=== PATIENT | male | born 1980 | race African-American/Black ===

== ENCOUNTER → 2016-10-05 | Outpatient (CLI) | payer MEDICAID ==
--- NOTE | 2016-10-06 14:22 | CR ---
EXAM DATE: 10/05/16 PATIENT'S AGE: 35 Patient: SAULO GRACE Facility: [place], [place] Site . Site : 1980 Study: XRay Extremity Left Ankle [id number]/26/2017 8:16:46 AM Ordering Physician: Gera Zendejas Final Report: INDICATION: PAIN TECHNIQUE: 3 views of the left ankle COMPARISON: December 05, 2014. FINDINGS: Bones: No fractures or bone lesions. Joint spaces: Unremarkable. Soft tissues: Unremarkable. IMPRESSION: No acute abnormality. Dictated by Suleman Walton MD @ 10/05/2016 11:45:32 PM Dictated by: Suleman Walton MD @ 10/05/2016 23:45:39 (Electronic Signature) Report Signed by Proxy. [facility]
== END ==
LOC: MW.CHORTHO 07:45
PROVIDERS: ATTEND Orthopaedic Surgery
DX: M25.572 Pain in left ankle and joints of left foot (principal)
CPT/HCPCS: 36415; 73610-26-LT; 73610-LT; 85025; 85652; 86038; 86140; 86200; 86430

== ENCOUNTER → 2016-10-07 | Outpatient (CLI) | payer MEDICAID ==
--- NOTE | 2016-10-09 16:41 | MR ---
EXAM DATE: 10/07/16 PATIENT'S AGE: 35 Patient: SAULO GRACE Facility: [place], [place] Site . Site : 1980 Study: MRI Extremity Left [id number]/28/2017 12:10:41 PM Ordering Physician: Gera Zendejas Final Report: HISTORY: Ankle pain. Findings: Ligaments: The anterior and posterior talofibular as well as the calcaneofibular and deltoid ligaments are intact. The syndesmotic ligaments are intact. Tendons: The posterior tibial, flexor digitorum longus, flexor hallucis longus, Achilles, peroneal, tibialis anterior and extensor tendons are intact. Ankle joint: Mild diffuse articular cartilage thinning is noted with subchondral cystic changes in the region of the medial malleolus. No joint effusion or loose body is noted. Bones soft tissues: No findings for transcortical fracture or osteochondritis dissecans. The plantar fascia is unremarkable. Impression: Mild articular cartilage loss and early degenerative change of the ankle joint. Examination is otherwise negative. Dictated by Doug Hermosillo MD @ Oct 08 2016 5:04PM (Electronic Signature) Report Signed by Proxy. [facility]
== END | disposition home or self-care (01) ==
LOC: MW.MRI 11:04
PROVIDERS: ATTEND Orthopaedic Surgery
DX: M25.572 Pain in left ankle and joints of left foot (principal); M13.872 Other specified arthritis, left ankle and foot; R42 Dizziness and giddiness; R11.2 Nausea with vomiting, unspecified; H93.13 Tinnitus, bilateral; H53.8 Other visual disturbances; M54.2 Cervicalgia
CPT/HCPCS: 36415; 72040; 72040-26; 73721-26-LT; 73721-LT; 80053

== ENCOUNTER → 2016-10-11 | Outpatient (CLI) | payer MEDICAID | LOC: MW.MRI 09:12 | PROVIDERS: ATTEND Student in an Organized Health Care Education/Training Program | DX: R42 Dizziness and giddiness (principal); H93.13 Tinnitus, bilateral; H53.8 Other visual disturbances; Z53.9 Procedure and treatment not carried out, unspecified reason ==

== ENCOUNTER → 2016-10-18 | Outpatient (CLI) | payer MEDICAID ==
--- NOTE | 2016-10-20 17:13 | MR ---
EXAMINATION: MRI of the brain with and without contrast. TECHNIQUE: Multiplanar and multisequence imaging of the brain without and following 17 cc of Multih ance contrast. Bkor-cu-zfawum images also obtained with thick slab MIP reconstructions. Moderate mot ion artifact obscures fine detail. HISTORY: Dizziness. FINDINGS: Cerebral hemispheres and the deep nuclei are without hemorrhage, mass, edema, gliosis, enhancement o r atrophy. There is no abnormal diffusion restriction. No extraaxial collections or hemorrhage. Ti ny periventricular and subcortical white matter FLAIR signal intensities are noted. Ventricular system is of normal size and configuration without hydrocephalus. The brainstem and cer ebellum are without hemorrhage, mass, edema, gliosis, enhancement or atrophy. The carotid basilar a rtery flow voids are intact. The distal internal carotid arteries appear normal. The vertebral basil ar system appears normal. The middle, anterior, posterior cerebral arteries appear normal. No defini te aneurysm or stricture. The otomastoid airspaces are clear. No internal auditory canal or cerebellopontine angle masses or enhancement. The paranasal sinuses are clear. Globes, optic nerves, orbital apices, optic chiasm, optic tracts, and visual cortices are unremarka ble. The pituitary and sella turcica are unremarkable. No meningeal enhancement. The craniocervical junction is unremarkable. No siderosis or evidence of vascular malformation. The calvarium is intact. IMPRESSION: 1. No acute intracranial findings. The study is somewhat limited secondary to motion. 2. Small nonspecific periventricular and subcortical white matter FLAIR signal abnormalities.
== END ==
LOC: MW.MRI 08:22
PROVIDERS: ATTEND Student in an Organized Health Care Education/Training Program
DX: R42 Dizziness and giddiness (principal); H93.13 Tinnitus, bilateral
CPT/HCPCS: 70553; 70553-26

== ENCOUNTER → 2016-10-27 | Outpatient (CLI) | payer MEDICAID | LOC: MW.CHNEURO 16:09 | PROVIDERS: ATTEND Psychiatry & Neurology Neuromuscular Medicine | DX: H53.8 Other visual disturbances (principal); R51 Headache; R68.89 Other general symptoms and signs; R20.9 Unspecified disturbances of skin sensation | CPT/HCPCS: 36415; 82607; 84443; 85652 ==

== ENCOUNTER 2017-04-03 10:00 | Emergency (ER) | payer BC ==
--- NOTE | 2017-04-03 10:14 | EDM.PDOC ---
ED HPI GENERAL MEDICAL PROBLEM - General Chief Complaint: General Stated Complaint: WEAKNESS Time Seen by Provider: 04/03/17 10:04 Source of Information: Reports: Patient History Limitations: Reports: No Limitations - History of Present Illness INITIAL COMMENTS - FREE TEXT/NARRATIVE: History of present illness: []Patient has a multitude of complaints including generalized weakness, joint pains, "something moving his head", insomnia, gastritis, lack of appetite, chills, and measured fevers, scratching in his eyes and is requesting meds to make this better. Patient has been seen by several physicians for similar complaints and several workups have been done without a diagnosis given. Patient has no new symptoms today. He does state that he has gastritis but has been off his medications. He has been taking ibuprofen for his joint pains. This is likely making his gastritis worse causing some of his symptoms. Review of systems: As per history of present illness and below otherwise all systems reviewed and negative. Past medical history: As per history of present illness and as reviewed below otherwise noncontributory. Surgical history: As per history of present illness and as reviewed below otherwise noncontributory. Social history: No reported history of drug or alcohol abuse. Family history: As per history of present illness and as reviewed below otherwise noncontributory. Physical exam: General: Well developed, well nourished in NAD HEENT: Atraumatic, normocephalic, pupils reactive, negative for conjunctival pallor or scleral icterus, mucous membranes moist, throat clear, neck supple, nontender, trachea midline. Lungs: Clear to auscultation, breath sounds equal bilaterally, chest nontender. Heart: S1S2, regular, negative for clicks, rubs, or JVD. Abdomen: Soft, nondistended, nontender. Negative for masses or hepatosplenomegaly. Negative for costovertebral tenderness. Pelvis: Stable nontender. Genitourinary: Deferred. Rectal: Deferred. Extremities: Atraumatic, negative for cords or calf pain. Neurovascular unremarkable. Neuro: Awake, alert, oriented. Cranial nerves II through XII unremarkable. Cerebellum unremarkable. Motor and sensory unremarkable throughout. Exam nonfocal. Diagnostics: []CBC and chemistry were checked for screening and were negative Therapeutics: [] Impression: []Gastritis, generalized weakness, generalized joint pains Plan: []Nexium twice a day , Definitive disposition and diagnosis as appropriate pending reevaluation and review of above. Generalized Pain Score (Numeric/FACES): 5 - Related Data Allergies Allergy/AdvReac Type Severity Reaction Status Date / Time No Known Allergies Allergy Verified 04/03/17 10:12 Home Meds: Home Meds Calcium Carbonate/Vitamin D3 [Calcium 500 + Vit D Caplet] 1 each PO DAILY [History] Esomeprazole Magnesium [Nexium] 40 mg PO BID #30 capsule. 04/03/17 [Rx] Past Medical History - Past Health History Medical/Surgical History: Denies Medical/Surgical History HEENT History: Reports: None Cardiovascular History: Reports: None Respiratory History: Reports: None Gastrointestinal History: Reports: None Genitourinary History: Reports: None Musculoskeletal History: Reports: None Neurological History: Reports: None Endocrine/Metabolic History: Reports: None Dermatologic History: Reports: None - Infectious Disease History Infectious Disease History: Reports: None - Past Surgical History HEENT Surgical History: Reports: None Cardiovascular Surgical History: Reports: None GI Surgical History: Reports: None Male Surgical History: Reports: None Social & Family History - Family History HEENT: Reports: None Cardiac: Reports: None - Tobacco Use Smoking Status *Q: Never Smoker - Alcohol Use Days Per Week of Alcohol Use: 0 Number of Drinks Per Day: 15 Total Drinks Per Week: 0 - Recreational Drug Use Recreational Drug Use: No ED ROS GENERAL - Review of Systems Review Of Systems: See Below (See history of present illness) ED EXAM, GENERAL - Physical Exam Exam: See Below (See history of present illness) Course - Vital Signs Last Recorded V/S: Last Vital Signs Temp 36.7 C 04/03/17 11:00 Pulse 97 04/03/17 11:00 Resp 14 04/03/17 11:00 BP 127/89 04/03/17 11:00 Pulse Ox 98 04/03/17 11:00 - Orders/Labs/Meds Labs: Laboratory Tests 04/03/17 04/03/17 Range/Units 10:51 10:51 WBC 6.12 (4.0-11.0) K/uL RBC 5.54 (4.50-5.90) M/uL Hgb 16.3 (13.0-17.0) g/dL Hct 46.7 (38.0-50.0) % MCV 84.3 (80.0-98.0) fL MCH 29.4 (27.0-32.0) pg MCHC 34.9 (31.0-37.0) g/dL RDW Std Deviation 40.9 (28.0-62.0) fl RDW Coeff of Nancy 13 (11.0-15.0) % Plt Count 178 (150-400) K/uL MPV 11.10 (7.40-12.00) fL Neut % (Auto) 65.2 (48.0-80.0) % Lymph % (Auto) 27.3 (16.0-40.0) % [place] % (Auto) 6.2 (0.0-15.0) % Eos % (Auto) 1.0 (0.0-7.0) % Baso % (Auto) 0.3 (0.0-1.5) % Neut # (Auto) 4.0 (1.4-5.7) K/uL Lymph # (Auto) 1.7 (0.6-2.4) K/uL [place] # (Auto) 0.4 (0.0-0.8) K/uL Eos # (Auto) 0.1 (0.0-0.7) K/uL Baso # (Auto) 0.0 (0.0-0.1) K/uL Nucleated RBC % 0.0 /100WBC Nucleated RBCs # 0 K/uL Sodium 139 (136-146) mmol/L Potassium 4.3 (3.5-5.1) mmol/L Chloride 107 (98-110) mmol/L Carbon Dioxide 26 (21-31) mmol/L BUN 8 (6.0-23.0) mg/dL Creatinine 1.3 (0.6-1.5) mg/dL Est Cr Clr Drug Dosing 86.22 mL/min Estimated GFR (MDRD) > 60.0 ml/min Glucose 88 (60-110) mg/dL Calcium 9.7 (8.8-10.8) mg/dL Total Bilirubin 0.7 (0.1-1.5) mg/dL AST 27 (5-40) IU/L ALT 29 (8-54) IU/L Alkaline Phosphatase 65 (40-150) Total Protein 7.8 (6.0-8.0) g/dL Albumin 4.3 (3.5-5.0) g/dL Globulin 3.5 (2.0-3.5) g/dL Albumin/Globulin Ratio 1.2 L (1.3-2.8) Departure - Departure Time of Disposition: 10:36 Disposition: Home, Self-Care 01 Condition: Good Clinical Impression: Gastritis Qualifiers: Gastritis type: unspecified gastritis Chronicity: chronic Gastritis bleeding: without bleeding Qualified Code(s): K29.50 - Unspecified chronic gastritis without bleeding - Discharge Information Prescriptions: Esomeprazole Magnesium [Nexium] 40 mg PO BID #30 capsule. Referrals: Solange Whiteside, [employer] [Primary Care Provider] - Forms: ED Department Discharge Additional Instructions: The following information is given to patients seen in the emergency department who are being discharged to home. This information is to outline your options for follow-up care. We provide all patients seen in our emergency department with a follow-up referral. The need for follow-up, as well as the timing and circumstances, are variable depending upon the specifics of your emergency department visit. If you don't have a primary care physician on staff, we will provide you with a referral. We always advise you to contact your personal physician following an emergency department visit to inform them of the circumstance of the visit and for follow-up with them and/or the need for any referrals to a consulting specialist. The emergency department will also refer you to a specialist when appropriate. This referral assures that you have the opportunity for follow-up care with a specialist. All of these measure are taken in an effort to provide you with optimal care, which includes your follow-up. Under all circumstances we always encourage you to contact your private physician who remains a resource for coordinating your care. When calling for follow-up care, please make the office aware that this follow-up is from your recent emergency room visit. If for any reason you are refused follow-up, please contact the [facility] Emergency Department at and asked to speak to the emergency department charge nurseCarmen Mendez as directed follow-up with your primary care physician [facility] [address] [place] [id number]
[2017-04-03 11:26] LABS: CHLORIDE,CL 107 mmol/L (98-110); SODIUM,NA 139 mmol/L (136-146)
[2017-04-03 12:06] VITALS: BP 121/76
== END 2017-04-03 12:00 | disposition home or self-care (01) ==
LOC: MW.ED 10:00
DX: K29.50 Unspecified chronic gastritis without bleeding (principal); R53.1 Weakness; M25.50 Pain in unspecified joint
CPT/HCPCS: 36415; 80053; 85025; 99283; 99285

== ENCOUNTER 2017-05-14 03:57 | Emergency (ER) | payer BC ==
[2017-05-14] MEDS ORDERED: Alum Hydrox/Mag Hydrox/Simeth 15 ML, Metoclopramide 5 MG, Lidocaine 2% 5 ML PO ONE ×3 (04:08)
[2017-05-14] MEDS ORDERED: Pantoprazole 40 MG Vial IVPUSH ONE (04:08)
[2017-05-14] MEDS ORDERED: Sodium Chloride 0.9% 1,000 ML IV ONE (04:08)
--- NOTE | 2017-05-14 04:10 | EDM.PDOC ---
ED HPI GENERAL MEDICAL PROBLEM - General Chief Complaint: Abdominal Pain Stated Complaint: STOMACH PAIN Time Seen by Provider: 05/14/17 04:09 Source of Information: Reports: Patient - History of Present Illness INITIAL COMMENTS - FREE TEXT/NARRATIVE: HISTORY AND PHYSICAL: History of present illness: []Patient with history of gastritis presents with abdominal/epigastric discomfort 4 out of 10 nonradiating worsening over the last day no fever nausea vomiting chills sweats no chest pain shortness breath headache dizziness palpitation about a urine symptoms Patient has had endoscopy one year prior Review of systems: As per history of present illness and below otherwise all systems reviewed and negative. Past medical history: As per history of present illness and as reviewed below otherwise noncontributory. Surgical history: As per history of present illness and as reviewed below otherwise noncontributory. Social history: No reported history of drug or alcohol abuse. Family history: As per history of present illness and as reviewed below otherwise noncontributory. Physical exam: HEENT: Atraumatic, normocephalic, pupils reactive, negative for conjunctival pallor or scleral icterus, mucous membranes moist, throat clear, neck supple, nontender, trachea midline. Lungs: Clear to auscultation, breath sounds equal bilaterally, chest nontender. Heart: S1S2, regular, negative for clicks, rubs, or JVD. Abdomen: Soft, nondistended, nontender. Negative for masses or hepatosplenomegaly. Negative for costovertebral tenderness. Pelvis: Stable nontender. Genitourinary: Deferred. Rectal: Deferred. Extremities: Atraumatic, negative for cords or calf pain. Neurovascular unremarkable. Neuro: Awake, alert, oriented. Cranial nerves II through XII unremarkable. Cerebellum unremarkable. Motor and sensory unremarkable throughout. Exam nonfocal. Diagnostics: []CBC CMP amylase lipase troponin Therapeutics: []1 L normal saline bolus GI cocktail Protonix 80 mg IV Symptoms resolved with above treatment Impression: []Gastritis improved Definitive disposition and diagnosis as appropriate pending reevaluation and review of above. Middle Abdomen Pain Score (Numeric/FACES): 5 - Related Data Allergies Allergy/AdvReac Type Severity Reaction Status Date / Time NSAIDS (Non-Steroidal Allergy Stomach Verified 05/14/17 04:08 Anti-Inflamma Upset Home Meds: Home Meds Calcium Carbonate/Vitamin D3 [Calcium 500 + Vit D Caplet] 1 each PO DAILY [History] Omeprazole 20 mg PO DAILY 05/14/17 [History] Past Medical History - Past Health History Medical/Surgical History: Denies Medical/Surgical History HEENT History: Reports: None Cardiovascular History: Reports: None Respiratory History: Reports: None Gastrointestinal History: Reports: None Genitourinary History: Reports: None Musculoskeletal History: Reports: None Neurological History: Reports: None Psychiatric History: Reports: Anxiety Endocrine/Metabolic History: Reports: None Dermatologic History: Reports: None - Infectious Disease History Infectious Disease History: Reports: None - Past Surgical History HEENT Surgical History: Reports: None Cardiovascular Surgical History: Reports: None GI Surgical History: Reports: None Male Surgical History: Reports: None Social & Family History - Family History HEENT: Reports: None Cardiac: Reports: None - Tobacco Use Smoking Status *Q: Never Smoker Second Hand Smoke Exposure: No - Caffeine Use Caffeine Use: Reports: None - Alcohol Use Days Per Week of Alcohol Use: 0 Number of Drinks Per Day: 15 Total Drinks Per Week: 0 - Recreational Drug Use Recreational Drug Use: No ED ROS GENERAL - Review of Systems Review Of Systems: ROS reveals no pertinent complaints other than HPI. ED EXAM, GENERAL - Physical Exam Exam: See Below Course - Vital Signs Last Recorded V/S: Last Vital Signs Temp 97.8 F 05/14/17 04:05 Pulse 69 05/14/17 05:23 Resp 17 05/14/17 05:23 BP 130/77 05/14/17 05:23 Pulse Ox 99 05/14/17 05:23 - Orders/Labs/Meds Orders: Active Orders 24 hr Category Date Time Status Abdomen 2V AP Flat Upright [CR] Stat Exams 05/14/17 05:20 Taken Labs: Laboratory Tests 05/14/17 05/14/17 Range/Units 04:30 04:30 WBC 7.42 (4.0-11.0) K/uL RBC 5.54 (4.50-5.90) M/uL Hgb 16.9 (13.0-17.0) g/dL Hct 47.9 (38.0-50.0) % MCV 86.5 (80.0-98.0) fL MCH 30.5 (27.0-32.0) pg MCHC 35.3 (31.0-37.0) g/dL RDW Std Deviation 43.3 (28.0-62.0) fl RDW Coeff of Nancy 14 (11.0-15.0) % Plt Count 161 (150-400) K/uL MPV 10.80 (7.40-12.00) fL Neut % (Auto) 48.1 (48.0-80.0) % Lymph % (Auto) 42.3 H (16.0-40.0) % [place] % (Auto) 7.1 (0.0-15.0) % Eos % (Auto) 2.2 (0.0-7.0) % Baso % (Auto) 0.3 (0.0-1.5) % Neut # (Auto) 3.6 (1.4-5.7) K/uL Lymph # (Auto) 3.1 H (0.6-2.4) K/uL [place] # (Auto) 0.5 (0.0-0.8) K/uL Eos # (Auto) 0.2 (0.0-0.7) K/uL Baso # (Auto) 0.0 (0.0-0.1) K/uL Nucleated RBC % 0.0 /100WBC Nucleated RBCs # 0 K/uL Sodium 143 (136-146) mmol/L Potassium 3.3 L (3.5-5.1) mmol/L Chloride 107 (98-110) mmol/L Carbon Dioxide 25 (21-31) mmol/L BUN 11 (6.0-23.0) mg/dL Creatinine 1.4 (0.6-1.5) mg/dL Est Cr Clr Drug Dosing 80.06 mL/min Estimated GFR (MDRD) > 60.0 ml/min Glucose 103 (60-110) mg/dL Calcium 9.6 (8.8-10.8) mg/dL Total Bilirubin 0.5 (0.1-1.5) mg/dL AST 31 (5-40) IU/L ALT 34 (8-54) IU/L Alkaline Phosphatase 69 (40-150) Troponin I < 0.10 (0.0-0.29) NG/ML Total Protein 7.9 (6.0-8.0) g/dL Albumin 4.5 (3.5-5.0) g/dL Globulin 3.4 (2.0-3.5) g/dL Albumin/Globulin Ratio 1.3 (1.3-2.8) Amylase 97 H (10-90) U/L Lipase 51 (7-80) U/L Meds: Medications Discontinued Medications Generic Name Dose Route Start Last Admin Trade Name Kavonq PRN Reason Stop Dose Admin Al Hydroxide/Mg Hydroxide 15 0 ml 05/14/17 04:08 05/14/17 04:32 ml/ Metoclopramide HCl 5 mg/ PO 05/14/17 04:09 25 each Lidocaine HCl 5 ml ONETIME ONE Administration Sodium Chloride 1,000 mls @ 999 mls/hr 05/14/17 04:08 05/14/17 04:30 Normal Saline IV 05/14/17 05:08 999 mls/hr STAT ONE Administration Pantoprazole Sodium 80 mg 05/14/17 04:08 05/14/17 04:34 Protonix Iv IVPUSH 05/14/17 04:09 80 mg .BOLUS ONE Administration Departure - Departure Time of Disposition: 06:43 Disposition: Home, Self-Care 01 Condition: Good Clinical Impression: Gastritis Qualifiers: Gastritis type: unspecified gastritis Chronicity: chronic Gastritis bleeding: without bleeding Qualified Code(s): K29.50 - Unspecified chronic gastritis without bleeding - Discharge Information Referrals: Solange Whiteside NP [Primary Care Provider] - Forms: ED Department Discharge Additional Instructions: Continue home medications as directed [place] diet Return if symptoms persist or worsen Follow-up with primary care in 2 weeks sooner as needed The following information is given to patients seen in the emergency department who are being discharged to home. This information is to outline your options for follow-up care. We provide all patients seen in our emergency department with a follow-up referral. The need for follow-up, as well as the timing and circumstances, are variable depending upon the specifics of your emergency department visit. If you don't have a primary care physician on staff, we will provide you with a referral. We always advise you to contact your personal physician following an emergency department visit to inform them of the circumstance of the visit and for follow-up with them and/or the need for any referrals to a consulting specialist. The emergency department will also refer you to a specialist when appropriate. This referral assures that you have the opportunity for follow-up care with a specialist. All of these measure are taken in an effort to provide you with optimal care, which includes your follow-up. Under all circumstances we always encourage you to contact your private physician who remains a resource for coordinating your care. When calling for follow-up care, please make the office aware that this follow-up is from your recent emergency room visit. If for any reason you are refused follow-up, please contact the [facility] emergency department at and asked to speak to the emergency department charge nurse. - My Orders Last 24 Hours: My Active Orders 05/14/17 05:20 Abdomen 2V AP Flat Upright [CR] Stat - Assessment/Plan Last 24 Hours: My Active Orders 05/14/17 05:20 Abdomen 2V AP Flat Upright [CR] Stat
[2017-05-14 04:56] LABS: CHLORIDE,CL 107 mmol/L (98-110); SODIUM,NA 143 mmol/L (136-146)
[2017-05-14 06:54] VITALS: BP 127/82
--- NOTE | 2017-05-15 15:35 | CR ---
EXAM DATE: 05/14/17 PATIENT'S AGE: 36 Patient: SAULO GRACE Facility: [place], [place] Site . Site : 1980 Study: XRay Abdomen [id number]/3/2017 5:55:36 AM Ordering Physician: Cedric Molina Final Report: INDICATION: Abdominal pain. TECHNIQUE: Upright and supine views of the abdomen, total of 4 images. IMPRESSION : The bowel gas pattern is nonobstructive. Upright exam shows no free air under the hemidiaphragms. Mild volume of colonic stool. Bowel gas extends distally to the rectum. No pathologic abdominal calcifications. Dictated by Jake Kendall MD @ 05/14/2017 6:03:46 AM Dictated by: Jake Kendall MD @ 05/14/2017 06:03:51 (Electronic Signature) Report Signed by Proxy. [facility]
== END 2017-05-14 06:57 | disposition home or self-care (01) ==
LOC: MW.ED 03:57
DX: K29.50 Unspecified chronic gastritis without bleeding (principal); Z79.899 Other long term (current) drug therapy
CPT/HCPCS: 74020; 80053; 82150; 83690; 84484; 85025; 96361; 96374; 99284; A9270; C9113; J7040

== ENCOUNTER 2017-05-22 06:03 | Emergency (ER) | payer BC ==
[2017-05-22] MEDS ORDERED: Sodium Chloride 0.9% 10 ML Syringe FLUSH PRN (06:17)
[2017-05-22] MEDS ORDERED: Sodium Chloride 0.9% 2.5 ML Syringe FLUSH PRN (06:17)
[2017-05-22] MEDS ORDERED: Sodium Chloride 0.9% 1,000 ML IV ONE (06:21)
--- NOTE | 2017-05-22 06:21 | EDM.PDOC ---
<Kayy Bridges - Last Filed: 05/22/17 06:40> ED HPI GENERAL MEDICAL PROBLEM - General Chief Complaint: Cardiovascular Problem Stated Complaint: DIZZY Time Seen by Provider: 05/22/17 06:09 - History of Present Illness INITIAL COMMENTS - FREE TEXT/NARRATIVE: HISTORY AND PHYSICAL: History of present illness: The patient is a 36-year-old male who presents with complaints of lightheadedness and feeling like he is going to faint associated with epigastric discomfort with some burning going up to his throat, thirsty like he needs to drink a lot of water and sweating of his feet that started at 12 midnight, 6 hours ago. The patient has been seen in the emergency department on May 14 for epigastric pain with history of gastritis and had labs including a CBC CMP amylase lipase troponin and then followed up with his provider in the clinic on May 18 and had an H. pylori test which was negative. According to the patient he has an ultrasound scheduled for this week. He has no cardiac or pulmonary and has no GI history other than the gastritis. Patient is currently taking medication, omeprazole and sucralfate, for the gastritis and states compliance. The patient denies any black or bloody stools and has not had diarrhea. He says that his restless last night and had difficulty sleeping and he is not sure why and then these symptoms started and he says that he had a bowel movement after the symptoms started which was again not black or bloody He denies alcohol or drug use and he said he did not complete pass out or blacked out but just felt lightheaded. He has no headache or neck pain no back pain no urinary complaints. Patient says he feels better when he lays down. The patient denies that he is dizzy he says it is more lightheadedness. Patient denies caffeine use Review of systems: As per history of present illness and below otherwise all systems reviewed and negative. Past medical history: As per history of present illness and as reviewed below otherwise noncontributory. Surgical history: As per history of present illness and as reviewed below otherwise noncontributory. Social history: No reported history of drug or alcohol abuse. Family history: As per history of present illness and as reviewed below otherwise noncontributory. Physical exam: Gen.: Well-developed well-nourished man who is nontoxic and ambulated into the ED without distress. Vital signs of the note by me. HEENT: Atraumatic, normocephalic, pupils reactive, negative for conjunctival pallor or scleral icterus, mucous membranes moist, throat clear, neck supple, nontender, trachea midline. Lungs: Clear to auscultation, breath sounds equal bilaterally, chest nontender. Heart: S1S2, regular rate and rhythm no overt murmurs Abdomen: Soft, nondistended, nontender. Bowel sounds are normoactive and there is no rebound guarding or tenderness on palpation of the abdomen throughout. Negative for masses or hepatosplenomegaly. Pelvis: Stable nontender. Genitourinary: Deferred. Rectal: Normal tone and there is scant stool in the vault which is green in color but it was trace heme positive Extremities: Atraumatic, negative for cords or calf pain. Neurovascular unremarkable. No pedal edema or leg asymmetry Neuro: Awake, alert, oriented. Cranial nerves II through XII unremarkable. Cerebellum unremarkable. Motor and sensory unremarkable throughout. Exam nonfocal. Skin: Normal turgor no evidence of any overt rashes or lesions and no diaphoresis Diagnostics: EKG orthostatic vitals CBC CMP troponin amylase lipase chest x-ray Therapeutics: IV O2 monitor IV fluids Orthostatic vitals reveal a change in systolic blood pressure from lying to standing from 148-123 and his heart rate goes from 82-101 indicating some orthostasis. Patient's hemoglobin today is stable when compared to the one performed on May 14 The patient does tell me that he is scheduled to have this ultrasound in the next 2 days with his provider Yolis Dorantes and that pending that result she told him the next step would be to get an endoscopy. Case is endorsed to Dr. Rai at 7 AM to follow-up testing results and disposition patient. Impression: Episode of lightheadedness and orthostasis with history of gastritis and heme positive stools stable Definitive disposition and diagnosis as appropriate pending reevaluation and review of above. - Related Data Allergies Allergy/AdvReac Type Severity Reaction Status Date / Time NSAIDS (Non-Steroidal Allergy Stomach Verified 05/22/17 06:12 Anti-Inflamma Upset Home Meds: Home Meds Calcium Carbonate/Vitamin D3 [Calcium 500 + Vit D Caplet] 1 each PO DAILY [History] Omeprazole 20 mg PO DAILY 05/14/17 [History] Sucralfate 1 tab PO QID 05/22/17 [History] Past Medical History - Past Health History Medical/Surgical History: Denies Medical/Surgical History HEENT History: Reports: None Cardiovascular History: Reports: None Respiratory History: Reports: None Gastrointestinal History: Reports: None Genitourinary History: Reports: None Musculoskeletal History: Reports: None Neurological History: Reports: None Psychiatric History: Reports: Anxiety Endocrine/Metabolic History: Reports: None Dermatologic History: Reports: None - Infectious Disease History Infectious Disease History: Reports: None - Past Surgical History HEENT Surgical History: Reports: None Cardiovascular Surgical History: Reports: None GI Surgical History: Reports: None Male Surgical History: Reports: None Social & Family History - Family History HEENT: Reports: None Cardiac: Reports: None - Tobacco Use Smoking Status *Q: Never Smoker Used Tobacco, but Quit: Yes Month Tobacco Last Used: 2013 Second Hand Smoke Exposure: No - Caffeine Use Caffeine Use: Reports: None - Alcohol Use Days Per Week of Alcohol Use: 0 Number of Drinks Per Day: 15 Total Drinks Per Week: 0 - Recreational Drug Use Recreational Drug Use: No ED ROS GENERAL - Review of Systems Review Of Systems: ROS reveals no pertinent complaints other than HPI. ED EXAM, GENERAL - Physical Exam Exam: See Below (See dictation) Course - Vital Signs Last Recorded V/S: Last Vital Signs Temp 98.2 F 05/22/17 06:08 Pulse 85 05/22/17 06:08 Resp 18 05/22/17 06:08 BP 141/87 H 05/22/17 06:08 Pulse Ox 99 05/22/17 06:08 Orthostatic Blood Pressure [ 123/86 Standing] Orthostatic Blood Pressure [ 143/89 Sitting] Orthostatic Blood Pressure [ 148/93 Supine] - Orders/Labs/Meds Orders: Active Orders 24 hr Category Date Time Status Cardiac Monitoring [RC] . DIRECTED Care 05/22/17 06:16 Active EKG Documentation Completion [RC] STAT Care 05/22/17 06:16 Active Orthostatic Vital Signs [RC] ASDIRECTED Care 05/22/17 06:17 Active Pulse Oximetry [RC] ASDIRECTED Care 05/22/17 06:16 Active Chest 1V Frontal [CR] Stat Exams 05/22/17 06:16 Taken Sodium Chloride 0.9% [Saline Flush] Med 05/22/17 06:17 Active 10 ml FLUSH ASDIRECTED PRN Sodium Chloride 0.9% [Saline Flush] Med 05/22/17 06:17 Active 2.5 ml FLUSH ASDIRECTED PRN Saline Lock Insert [OM.PC] Stat Oth 05/22/17 06:15 Ordered Medication Orders Sodium Chloride (Saline Flush) 10 ml FLUSH ASDIRECTED PRN PRN Reason: Keep Vein Open Last Admin: 05/22/17 06:42 Dose: 10 ml Sodium Chloride (Saline Flush) 2.5 ml FLUSH ASDIRECTED PRN PRN Reason: Keep Vein Open Last Admin: 05/22/17 06:41 Dose: 2.5 ml Labs: Laboratory Tests 05/22/17 05/22/17 Range/Units 06:20 06:20 WBC 7.29 (4.0-11.0) K/uL RBC 5.44 (4.50-5.90) M/uL Hgb 16.3 (13.0-17.0) g/dL Hct 46.4 (38.0-50.0) % MCV 85.3 (80.0-98.0) fL MCH 30.0 (27.0-32.0) pg MCHC 35.1 (31.0-37.0) g/dL RDW Std Deviation 41.6 (28.0-62.0) fl RDW Coeff of Nancy 14 (11.0-15.0) % Plt Count 181 (150-400) K/uL MPV 11.20 (7.40-12.00) fL Neut % (Auto) 52.1 (48.0-80.0) % Lymph % (Auto) 37.4 (16.0-40.0) % [place] % (Auto) 8.8 (0.0-15.0) % Eos % (Auto) 1.6 (0.0-7.0) % Baso % (Auto) 0.1 (0.0-1.5) % Neut # (Auto) 3.8 (1.4-5.7) K/uL Lymph # (Auto) 2.7 H (0.6-2.4) K/uL [place] # (Auto) 0.6 (0.0-0.8) K/uL Eos # (Auto) 0.1 (0.0-0.7) K/uL Baso # (Auto) 0.0 (0.0-0.1) K/uL Nucleated RBC % 0.0 /100WBC Nucleated RBCs # 0 K/uL Sodium 139 (136-146) mmol/L Potassium 3.3 L (3.5-5.1) mmol/L Chloride 104 (98-110) mmol/L Carbon Dioxide 22 (21-31) mmol/L BUN 9 (6.0-23.0) mg/dL Creatinine 1.4 (0.6-1.5) mg/dL Est Cr Clr Drug Dosing 80.06 mL/min Estimated GFR (MDRD) > 60.0 ml/min Glucose 118 H (60-110) mg/dL Calcium 9.5 (8.8-10.8) mg/dL Total Bilirubin 0.8 (0.1-1.5) mg/dL AST 26 (5-40) IU/L ALT 27 (8-54) IU/L Alkaline Phosphatase 55 (40-150) Troponin I < 0.10 (0.0-0.29) NG/ML Total Protein 7.8 (6.0-8.0) g/dL Albumin 4.3 (3.5-5.0) g/dL Globulin 3.5 (2.0-3.5) g/dL Albumin/Globulin Ratio 1.2 L (1.3-2.8) Amylase 119 H (10-90) U/L Lipase 68 (7-80) U/L Meds: Medications Generic Name Dose Route Start Last Admin Trade Name Freq PRN Reason Stop Dose Admin Sodium Chloride 10 ml 05/22/17 06:17 05/22/17 06:42 Saline Flush FLUSH 10 ml ASDIRECTED PRN Administration Keep Vein Open Sodium Chloride 2.5 ml 05/22/17 06:17 05/22/17 06:41 Saline Flush FLUSH 2.5 ml ASDIRECTED PRN Administration Keep Vein Open Discontinued Medications Generic Name Dose Route Start Last Admin Trade Name Freq PRN Reason Stop Dose Admin Sodium Chloride 1,000 mls @ 999 mls/hr 05/22/17 06:21 05/22/17 06:41 Normal Saline IV 05/22/17 07:21 999 mls/hr STAT ONE Administration Departure - Departure Disposition: Home, Self-Care 01 Condition: Good Clinical Impression: Lightheadedness, Orthostasis, History of gastritis Referrals: PCP,None [Primary Care Provider] - Forms: ED Department Discharge Additional Instructions: The following information is given to patients seen in the emergency department who are being discharged to home. This information is to outline your options for follow-up care. We provide all patients seen in our emergency department with a follow-up referral. The need for follow-up, as well as the timing and circumstances, are variable depending upon the specifics of your emergency department visit. If you don't have a primary care physician on staff, we will provide you with a referral. We always advise you to contact your personal physician following an emergency department visit to inform them of the circumstance of the visit and for follow-up with them and/or the need for any referrals to a consulting specialist. The emergency department will also refer you to a specialist when appropriate. This referral assures that you have the opportunity for followup care with a specialist. All of these measure are taken in an effort to provide you with optimal care, which includes your followup. Under all circumstances we always encourage you to contact your private physician who remains a resource for coordinating your care. When calling for followup care, please make the office aware that this follow-up is from your recent emergency room visit. If for any reason you are refused follow-up, please contact the [facility] emergency department at and ask to speak to the emergency department charge nurse. Primary care- Internal Medicine and Family [address] [address] Please continue all your medications as before and push hydration. Please contact the clinic to discuss today's ER visit with your provider and still go to your ultrasound as scheduled this week. Please make sure that you have a follow-up appointment with your provider scheduled in the next few days. Return to ER as needed and as discussed <Gladys Rai - Last Filed: 05/22/17 08:15> Departure - Departure Time of Disposition: 08:15
[2017-05-22 06:57] LABS: CHLORIDE,CL 104 mmol/L (98-110); SODIUM,NA 139 mmol/L (136-146)
[2017-05-22 08:32] VITALS: BP 134/89
--- NOTE | 2017-05-22 20:21 | CR ---
EXAM DATE: 05/22/17 PATIENT'S AGE: 36 Patient: SAULO GRACE Facility: [place], [place] Site . Site : [id number] Study: XRay Chest [id number]/11/2017 6:53:34 AM Ordering Physician: Yuliana Sultana Final Report: INDICATION: Dizziness COMPARISON: Chest x-ray dated 06 August 2015. FINDINGS: A single portable chest x-ray shows a normal cardiac silhouette. The lungs show no focal pulmonary opacities. Sharp pleural margins. No pneumothorax. IMPRESSION: No evidence of acute pulmonary abnormalities. Dictated by Hadley Carlson MD @ 05/22/2017 7:26:41 AM Dictated by: Hadley Carlson MD @ 05/22/2017 07:26:53 (Electronic Signature) Report Signed by Proxy. [facility]
== END 2017-05-22 08:32 | disposition home or self-care (01) ==
LOC: MW.ED 06:03
DX: I95.1 Orthostatic hypotension (principal); Z88.8 Allergy status to other drugs, medicaments and biological substances; Z79.899 Other long term (current) drug therapy; Z87.19 Personal history of other diseases of the digestive system
CPT/HCPCS: 71010; 80053; 82150; 83690; 84484; 85025; 93005; 99284; J7040

== ENCOUNTER 2017-06-13 12:06 | Day surgery (SDC) | payer BC ==
[~2017-06-13 12:06] MED LIST: Lactated Ringers 1,000 ML IV SCH
--- NOTE | 2017-06-13 12:33 | PCM.PREANE ---
Preanesthetic Assessment - Anesthesia/Transfusion/Family Hx Anesthesia History: No Prior Anesthesia Family History of Anesthesia Reaction: No Transfusion History: No Prior Transfusion(s) - Review of Systems General: No Symptoms Pulmonary: No Symptoms Cardiovascular: No Symptoms Neurological: No Symptoms Other: Reports: None - Physical Assessment Height: 1.83 m Weight: 83.461 kg ASA Class: 2 Mental Status: Alert & Oriented x3 Airway Class: Mallampati = 1 Dentition: Reports: Normal Dentition ROM/Head Extension: Limited/Partial Lungs: Clear to Auscultation, Normal Respiratory Effort Cardiovascular: Regular Rate, Regular Rhythm - Allergies Allergies/Adverse Reactions: Allergies Allergy/AdvReac Type Severity Reaction Status Date / Time NSAIDS (Non-Steroidal Allergy Stomach Verified 05/22/17 06:12 Anti-Inflamma Upset - Anesthesia Plan Pre-Op Medication Ordered: None - Acknowledgements Anesthesia Type Planned: MAC Pt an Appropriate Candidate for the Planned Anesthesia: Yes Alternatives and Risks of Anesthesia Discussed w Pt/Guardian: Yes Pt/Guardian Understands and Agrees with Anesthesia Plan: Yes Additional Comments: PMH: anxiety, gastritis, GERD, denies hx of heart valve replacement. PreAnesthesia Questionnaire - Past Health History Medical/Surgical History: Denies Medical/Surgical History HEENT History: Reports: Other (See Below) Other HEENT History: hx of dry eyes Cardiovascular History: Reports: None Respiratory History: Reports: None Gastrointestinal History: Reports: GERD Genitourinary History: Reports: None Musculoskeletal History: Reports: Fracture Other Musculoskeletal History: hx of fx ankle Neurological History: Reports: Headaches, Chronic Psychiatric History: Reports: Anxiety Endocrine/Metabolic History: Reports: None Dermatologic History: Reports: None - Infectious Disease History Infectious Disease History: Reports: None - Past Surgical History HEENT Surgical History: Reports: None Cardiovascular Surgical History: Reports: None GI Surgical History: Reports: None Male Surgical History: Reports: None - SUBSTANCE USE Smoking Status *Q: Never Smoker Second Hand Smoke Exposure: No Days Per Week of Alcohol Use: 0 Number of Drinks Per Day: 15 Total Drinks Per Week: 0 Recreational Drug Use History: No - HOME MEDS Home Medications: Home Meds Omeprazole 20 mg PO DAILY 05/14/17 [History] Sucralfate 1 gm PO QID 05/22/17 [History] prednisoLONE Acetate [Pred Forte 1% Ophth Susp] 1 drop EYEBOTH QID 06/09/17 [ History] - CURRENT (IN HOUSE) MEDS Current Meds: Current Medications Lactated Ringer's (Ringers, Lactated) 1,000 mls @ 125 mls/hr IV ASDIRECTED [facility] Last Admin: 06/13/17 12:18 Dose: 125 mls/hr
--- NOTE | 2017-06-13 14:07 | PCM.OPNOTE ---
- General Post-Op/Procedure Note Date of Surgery/Procedure: 06/13/17 Findings: see dict [id number] Pre Op Diagnosis: BRBPR Post-Op Diagnosis: Same Anesthesia Technique: Moderate Sedation Primary Surgeon: Héctor Nunez Pathology: sent Complications: None Condition: Good
--- NOTE | 2017-06-13 14:24 | PCM.POSTAN ---
POST ANESTHESIA ASSESSMENT - MENTAL STATUS Mental Status: Alert, Oriented - RESPIRATORY Respiratory Status: Respiratory Rate WNL, Airway Patent, O2 Saturation Stable - CARDIOVASCULAR CV Status: Pulse Rate WNL, Blood Pressure Stable - GASTROINTESTINAL GI Status: No Symptoms - PAIN Pain Score: 0 - POST OP HYDRATION Hydration Status: Adequate & Stable - OBSERVATIONS Free Text/Narrative:: Pt stable. No apparent anesthesia complications.
[2017-06-13 15:05] VITALS: BP 124/64
--- NOTE | 2017-06-13 15:38 | PCM48HPAN ---
Post Anesthesia Note - EVALUATION WITHIN 48HRS OF ANESTHETIC Vital Signs in Normal Range: Yes Patient Participated in Evaluation: Yes Respiratory Function Stable: Yes Airway Patent: Yes Cardiovascular Function Stable: Yes Hydration Status Stable: Yes Pain Control Satisfactory: Yes Nausea and Vomiting Control Satisfactory: Yes Mental Status Recovered: Yes - COMMENTS/OBSERVATIONS Free Text/Narrative:: states less dizzy than he was feeling. No anesthesia complications.
--- NOTE | 2017-06-13 18:23 | OR ---
SURGEON: Héctor Nunez MD DATE OF PROCEDURE: 06/13/2017 PREOPERATIVE DIAGNOSIS: Bright red blood per rectum. PROCEDURE PERFORMED: EGD with biopsy and colonoscopy. EGD: The patient was taken to the endoscopy room, and with the FLAKE DRIER, Diprivan was administered. A well-lubricated EGD scope was gently inserted through the oropharynx, down the esophagus, passing through the gastroesophageal junction, into the stomach. The mucosa was examined upon the passage. Any etiology will be noted. Once in the stomach, we continued to advance to the distal antrum, passed through the pylorus into the second portion of the duodenum. Again, the mucosa was examined for any abnormality and etiology. The scope was then retrieved back to the stomach and then retroflexed to look at the fundus of the stomach. If a biopsy was indicated, we will biopsy the antrum, body, and gastroesophageal junction. The air will be sucked out while the scope is retrieved to reduce the patient's discomfort. The patient tolerated the procedure well. There were no intraoperative complications. Dr. Nunez was present through the whole procedure. Prior to surgery, a time-out had been called, the patient identified, procedure identified and antibiotic administered. EGD FINDINGS: 1. The patient is easily sedated with FLAKE DRIER and Diprivan. The patient is soundly snoring. 2. Oropharynx and proximal esophagus are free of disease and distal esophagus shows very mild salmon color change consistent with mild acid reflux, and stomach rugae is normal in appearance and antrum is quite inflamed and has an area that looks like a doughnut, like a stomach, diverticulum, and also inflamed around that. Duodenum is grossly normal in appearance and no ulcer or blood. Scope was retrieved back to the stomach and retroflexed to look at the fundus of stomach, there was no hiatal hernia. Biopsy done at antrum, body, and GE junction at 40. I sucked out the air while scope pulling out and biopsy was given two time to the diverticulum area. In the stomach, there was no blood. There was no ulcer, no bile, no food. Colonoscopy: The patient was taken to the endoscopy room. A time out was called, patient identified, and procedure identified. Diprivan was then administrated. Patient went from awake to sleep, hearing doctor talking or door closing is normal. Perineum inspection and digital examination were then performed. A well-lubricated colonoscope was gently inserted through the rectum, advanced past the rectosigmoid junction, the descending colon, splenic flexure, transverse colon, hepatic flexure, ascending colon, arrived to the cecum. Cecum was identified as dictated in the finding. Then the scope was carefully withdrawn while attention was paid to the mucosal surface for any abnormality. Air will be sucked out during the scope withdrawal. At the rectum, retroflexed to examine any rectal diseases, fistula or hemorrhoids. During mucosal examination, abnormality or polyp was noted; picture taken and biopsy performed. Patient tolerated procedure well. There were no intraoperative complications, and Dr. Nunez was present throughout the whole procedure. COLONOSCOPY FINDINGS: 1. The patient is easily sedated with FLAKE DRIER and Diprivan. The patient is soundly snoring. 2. Bowel prep is left to be desirable, marginally acceptable likely should not be except with solid stool in a couple of areas, but it was able to blow away by irrigation. Cecum indicated by ileocecal fold, one-to-one indentation, light mittens and appendix orifice. Mucosa was examined upon scope pulling out with constant irrigation, so this is a compromised study because of bowel prep. The patient does not have polyp, diverticulosis, mass, growth, inflammation, stricture, ulceration, bleeding, AV malformation. The patient has mild internal hemorrhoids, no external hemorrhoids. The patient would benefit from repeat colonoscopy in 10 years from today or if clinically indicated otherwise. So, the whole colonoscopy studied as there is no black tarry stool and there is no blood or ulceration observed. SIOBHAN / DANNY /[id number] RAAD
== END 2017-06-13 15:20 | disposition home or self-care (01) ==
LOC: MW.SDS 12:06
PROVIDERS: ATTEND Surgery
DX: K29.50 Unspecified chronic gastritis without bleeding (principal); K21.9 Gastro-esophageal reflux disease without esophagitis; K64.8 Other hemorrhoids; J30.9 Allergic rhinitis, unspecified; F41.9 Anxiety disorder, unspecified; N52.9 Male erectile dysfunction, unspecified; A63.0 Anogenital (venereal) warts; Z79.899 Other long term (current) drug therapy; Z88.8 Allergy status to other drugs, medicaments and biological substances
CPT/HCPCS: 43239; 45380; J7120; 88305; 88312

== ENCOUNTER 2017-08-04 05:59 | Emergency (ER) | payer BC ==
--- NOTE | 2017-08-04 06:29 | EDM.PDOC ---
ED HPI GENERAL MEDICAL PROBLEM - General Chief Complaint: Chest Pain Stated Complaint: CHEST PAIN Time Seen by Provider: 08/04/17 06:07 - History of Present Illness INITIAL COMMENTS - FREE TEXT/NARRATIVE: HISTORY AND PHYSICAL: History of present illness: Patient 36-year-old black male presents with concern of chest pain this is vaguely described without associated palpitations shortness of breath nausea vomiting or diaphoresis Review of systems: As per history of present illness and below otherwise all systems reviewed and negative. Past medical history: As per history of present illness and as reviewed below otherwise noncontributory. Surgical history: As per history of present illness and as reviewed below otherwise noncontributory. Social history: No reported history of drug or alcohol abuse. Family history: As per history of present illness and as reviewed below otherwise noncontributory. Physical exam: HEENT: Atraumatic, normocephalic, pupils reactive, negative for conjunctival pallor or scleral icterus, mucous membranes moist, throat clear, neck supple, nontender, trachea midline. Lungs: Clear to auscultation, breath sounds equal bilaterally, chest nontender. Heart: S1S2, regular, negative for clicks, rubs, or JVD. Abdomen: Soft, nondistended, nontender. Negative for masses or hepatosplenomegaly. Negative for costovertebral tenderness. Pelvis: Stable nontender. Genitourinary: Deferred. Rectal: Deferred. Extremities: Atraumatic, negative for cords or calf pain. Neurovascular unremarkable. Neuro: Awake, alert, oriented. Cranial nerves II through XII unremarkable. Cerebellum unremarkable. Motor and sensory unremarkable throughout. Exam nonfocal. Diagnostics: CBC CMP PT/INR troponin chest x-ray EKG Therapeutics: None Impression: #1 atypical chest pain Definitive disposition and diagnosis as appropriate pending reevaluation and review of above. chest area Pain Score (Numeric/FACES): 9 - Related Data Allergies Allergy/AdvReac Type Severity Reaction Status Date / Time NSAIDS (Non-Steroidal Allergy Stomach Verified 08/04/17 06:07 Anti-Inflamma Upset Home Meds: Home Meds Omeprazole 40 mg PO DAILY 05/14/17 [History] Past Medical History - Past Health History Medical/Surgical History: Denies Medical/Surgical History HEENT History: Reports: Other (See Below) Other HEENT History: hx of dry eyes Cardiovascular History: Reports: None Respiratory History: Reports: None Gastrointestinal History: Reports: Gastritis, GERD Genitourinary History: Reports: None Musculoskeletal History: Reports: Fracture Other Musculoskeletal History: hx of fx ankle Neurological History: Reports: Headaches, Chronic Psychiatric History: Reports: Anxiety Endocrine/Metabolic History: Reports: None Hematologic History: Reports: None Immunologic History: Reports: None Oncologic (Cancer) History: Reports: None Dermatologic History: Reports: None - Infectious Disease History Infectious Disease History: Reports: None - Past Surgical History Head Surgeries/Procedures: Reports: None HEENT Surgical History: Reports: None Cardiovascular Surgical History: Reports: None GI Surgical History: Reports: None Male Surgical History: Reports: None Social & Family History - Family History Family Medical History: Noncontributory HEENT: Reports: None Cardiac: Reports: None - Tobacco Use Smoking Status *Q: Never Smoker Used Tobacco, but Quit: Yes Month Tobacco Last Used: 2013 Second Hand Smoke Exposure: No - Caffeine Use Caffeine Use: Reports: None - Alcohol Use Days Per Week of Alcohol Use: 0 Number of Drinks Per Day: 15 Total Drinks Per Week: 0 - Recreational Drug Use Recreational Drug Use: No Drug Use in Last 12 Months: No ED ROS GENERAL - Review of Systems Review Of Systems: ROS reveals no pertinent complaints other than HPI. ED EXAM, GENERAL - Physical Exam Exam: See Below (See dictation) Course - Vital Signs Last Recorded V/S: Last Vital Signs Temp 36.4 C 08/04/17 06:07 Pulse 82 08/04/17 06:07 Resp 18 08/04/17 06:07 BP 131/76 08/04/17 06:07 Pulse Ox 98 08/04/17 06:07 - Orders/Labs/Meds Orders: Active Orders 24 hr Category Date Time Status EKG Documentation Completion [RC] STAT Care 08/04/17 06:10 Active Chest 1V Frontal [CR] Stat Exams 08/04/17 06:11 Ordered CBC WITH AUTO DIFF [HEME] Stat Lab 08/04/17 06:24 Received COMPREHENSIVE METABOLIC PN,CMP [CHEM] Stat Lab 08/04/17 06:24 Received INR,PT,PROTHROMBIN TIME [COAG] Stat Lab 08/04/17 06:24 Received TROPONIN I [CHEM] Stat Lab 08/04/17 06:24 Received Departure - Departure Time of Disposition: 06:42 Disposition: Home, Self-Care 01 Condition: Good Clinical Impression: Atypical chest pain - Discharge Information Referrals: PCP,None [Primary Care Provider] - Forms: ED Department Discharge Additional Instructions: The following information is given to patients seen in the emergency department who are being discharged to home. This information is to outline your options for follow-up care. We provide all patients seen in our emergency department with a follow-up referral. The need for follow-up, as well as the timing and circumstances, are variable depending upon the specifics of your emergency department visit. If you don't have a primary care physician on staff, we will provide you with a referral. We always advise you to contact your personal physician following an emergency department visit to inform them of the circumstance of the visit and for follow-up with them and/or the need for any referrals to a consulting specialist. The emergency department will also refer you to a specialist when appropriate. This referral assures that you have the opportunity for followup care with a specialist. All of these measure are taken in an effort to provide you with optimal care, which includes your followup. Under all circumstances we always encourage you to contact your private physician who remains a resource for coordinating your care. When calling for followup care, please make the office aware that this follow-up is from your recent emergency room visit. If for any reason you are refused follow-up, please contact the [facility] emergency department at and asked to speak to the emergency department charge nurse. [facility] [address] [place] [phone] Follow-up primary medical doctor and/or clinic both call to schedule routine appointment return as needed as discussed - My Orders Last 24 Hours: My Active Orders 08/04/17 06:10 EKG Documentation Completion [RC] STAT 08/04/17 06:11 Chest 1V Frontal [CR] Stat 08/04/17 06:24 CBC WITH AUTO DIFF [HEME] Stat COMPREHENSIVE METABOLIC PN,CMP [CHEM] Stat INR,PT,PROTHROMBIN TIME [COAG] Stat TROPONIN I [CHEM] Stat - Assessment/Plan Last 24 Hours: My Active Orders 08/04/17 06:10 EKG Documentation Completion [RC] STAT 08/04/17 06:11 Chest 1V Frontal [CR] Stat 08/04/17 06:24 CBC WITH AUTO DIFF [HEME] Stat COMPREHENSIVE METABOLIC PN,CMP [CHEM] Stat INR,PT,PROTHROMBIN TIME [COAG] Stat TROPONIN I [CHEM] Stat
[2017-08-04 06:52] LABS: CHLORIDE,CL 106 mmol/L (98-110); SODIUM,NA 140 mmol/L (136-146)
[2017-08-04 07:37] VITALS: BP 112/57
--- NOTE | 2017-08-04 16:13 | CR ---
EXAM DATE: 08/04/17 PATIENT'S AGE: 36 Patient: SAULO GRACE Facility: [place], [place] Site . Site : 1980 Study: XRay Chest [id number] 6:58:32 AM Ordering Physician: Doctor Squires Final Report: HISTORY: Chest pain. TECHNIQUE: Portable frontal view the chest. COMPARISON: Chest x-ray 05/22/2017. FINDINGS: No airspace consolidation. No pleural effusion pneumothorax. Pulmonary vasculature is within normal limits. Cardiomediastinal silhouette is within normal limits. IMPRESSION: No acute findings. No change from 05/22/2017. Dictated by Jesse Eller MD @ Aug 04 2017 7:01AM (Electronic Signature) Report Signed by Proxy. RAAD
== END 2017-08-04 07:30 | disposition home or self-care (01) ==
LOC: MW.ED 05:59
DX: R07.89 Other chest pain (principal); K21.9 Gastro-esophageal reflux disease without esophagitis; Z87.891 Personal history of nicotine dependence; Z79.899 Other long term (current) drug therapy; Z88.8 Allergy status to other drugs, medicaments and biological substances
CPT/HCPCS: 36415; 71045; 71045-26; 80053; 84484; 85025; 85610; 93005; 99283; 99285-25

== ENCOUNTER 2017-08-26 06:40 | Emergency (ER) | payer BC ==
[2017-08-26] MEDS ORDERED: Sodium Chloride 0.9% 1,000 ML IV ONE (07:14)
--- NOTE | 2017-08-26 07:16 | EDM.PDOC ---
ED HPI GENERAL MEDICAL PROBLEM - General Chief Complaint: Headache Stated Complaint: FEELING DIZZY Time Seen by Provider: 08/26/17 07:15 Source of Information: Reports: Patient - History of Present Illness INITIAL COMMENTS - FREE TEXT/NARRATIVE: HISTORY AND PHYSICAL: History of present illness: []Patient presents with 5 out of 10 headache diffuse nonradiating since this morning, symptoms began after ligamentously close friend who at work within the last couple of days apparently she was transferred [place] and possibly fell while at work causing her . Otherwise patient has no fever nausea vomiting chills sweats no chest pain shortness breath or palpitation no bowel or urine symptoms she states that he feels somewhat dizzy His been in multiple times previously with dehydration symptoms Review of systems: As per history of present illness and below otherwise all systems reviewed and negative. Past medical history: As per history of present illness and as reviewed below otherwise noncontributory. Surgical history: As per history of present illness and as reviewed below otherwise noncontributory. Social history: No reported history of drug or alcohol abuse. Family history: As per history of present illness and as reviewed below otherwise noncontributory. Physical exam: HEENT: Atraumatic, normocephalic, pupils reactive, negative for conjunctival pallor or scleral icterus, mucous membranes moist, throat clear, neck supple, nontender, trachea midline. Lungs: Clear to auscultation, breath sounds equal bilaterally, chest nontender. Heart: S1S2, regular, negative for clicks, rubs, or JVD. Abdomen: Soft, nondistended, nontender. Negative for masses or hepatosplenomegaly. Negative for costovertebral tenderness. Pelvis: Stable nontender. Genitourinary: Deferred. Rectal: Deferred. Extremities: Atraumatic, negative for cords or calf pain. Neurovascular unremarkable. Neuro: Awake, alert, oriented. Cranial nerves II through XII unremarkable. Cerebellum unremarkable. Motor and sensory unremarkable throughout. Exam nonfocal. Diagnostics: [CBC CMP UA ]MRI brain on file from October 2016 Therapeutics: [Liter normal saline bolus Zofran 8 mg IV ] Phenergan 25 mg by mouth every 6 hours when necessary #30 no refill Impression: [Headache]-resolved Dizziness improved Definitive disposition and diagnosis as appropriate pending reevaluation and review of above. Head Pain Score (Numeric/FACES): 8 - Related Data Allergies Allergy/AdvReac Type Severity Reaction Status Date / Time NSAIDS (Non-Steroidal Allergy Stomach Verified 08/26/17 06:52 Anti-Inflamma Upset Home Meds: Home Meds . [No Known Home Meds] 08/26/17 [History] Past Medical History - Past Health History Medical/Surgical History: Denies Medical/Surgical History HEENT History: Reports: Other (See Below) Other HEENT History: hx of dry eyes Cardiovascular History: Reports: None Respiratory History: Reports: None Gastrointestinal History: Reports: Gastritis, GERD Genitourinary History: Reports: None Musculoskeletal History: Reports: Fracture Other Musculoskeletal History: hx of fx ankle Neurological History: Reports: Headaches, Chronic Psychiatric History: Reports: Anxiety Endocrine/Metabolic History: Reports: None Hematologic History: Reports: None Immunologic History: Reports: None Oncologic (Cancer) History: Reports: None Dermatologic History: Reports: None - Infectious Disease History Infectious Disease History: Reports: None - Past Surgical History Head Surgeries/Procedures: Reports: None HEENT Surgical History: Reports: None Cardiovascular Surgical History: Reports: None GI Surgical History: Reports: None Male Surgical History: Reports: None Social & Family History - Family History Family Medical History: Noncontributory HEENT: Reports: None Cardiac: Reports: None - Tobacco Use Smoking Status *Q: Never Smoker Used Tobacco, but Quit: Yes Month/Year Tobacco Last Used: 2013 Second Hand Smoke Exposure: No - Caffeine Use Caffeine Use: Reports: None - Alcohol Use Days Per Week of Alcohol Use: 0 Number of Drinks Per Day: 15 Total Drinks Per Week: 0 - Recreational Drug Use Recreational Drug Use: No Drug Use in Last 12 Months: No ED ROS GENERAL - Review of Systems Review Of Systems: ROS reveals no pertinent complaints other than HPI. ED EXAM, GENERAL - Physical Exam Exam: See Below Course - Vital Signs Last Recorded V/S: Last Vital Signs Temp 98.3 F 08/26/17 06:40 Pulse 81 08/26/17 06:40 Resp 18 08/26/17 06:40 BP 147/91 H 08/26/17 06:40 Pulse Ox 100 08/26/17 06:40 - Orders/Labs/Meds Orders: Active Orders 24 hr Category Date Time Status UA W/MICROSCOPIC [URIN] Stat Lab 08/26/17 07:14 Ordered Labs: Laboratory Tests 08/26/17 08/26/17 Range/Units 07:20 07:20 WBC 5.67 (4.0-11.0) K/uL RBC 5.12 (4.50-5.90) M/uL Hgb 15.3 (13.0-17.0) g/dL Hct 43.8 (38.0-50.0) % MCV 85.5 (80.0-98.0) fL MCH 29.9 (27.0-32.0) pg MCHC 34.9 (31.0-37.0) g/dL RDW Std Deviation 41.1 (28.0-62.0) fl RDW Coeff of Nancy 13 (11.0-15.0) % Plt Count 151 (150-400) K/uL MPV 11.40 (7.40-12.00) fL Neut % (Auto) 67.3 (48.0-80.0) % Lymph % (Auto) 24.9 (16.0-40.0) % [place] % (Auto) 6.5 (0.0-15.0) % Eos % (Auto) 1.1 (0.0-7.0) % Baso % (Auto) 0.2 (0.0-1.5) % Neut # (Auto) 3.8 (1.4-5.7) K/uL Lymph # (Auto) 1.4 (0.6-2.4) K/uL [place] # (Auto) 0.4 (0.0-0.8) K/uL Eos # (Auto) 0.1 (0.0-0.7) K/uL Baso # (Auto) 0.0 (0.0-0.1) K/uL Nucleated RBC % 0.0 /100WBC Nucleated RBCs # 0 K/uL Sodium 140 (136-148) mmol/L Potassium 3.7 (3.5-5.1) mmol/L Chloride 105 (98-107) mmol/L Carbon Dioxide 26.1 (21.0-32.0) mmol/L BUN 11 (7.0-18.0) mg/dL Creatinine 1.2 (0.8-1.3) mg/dL Est Cr Clr Drug Dosing 93.41 mL/min Estimated GFR (MDRD) > 60.0 ml/min Glucose 103 (74-106) mg/dL Calcium 9.0 (8.5-10.1) mg/dL Total Bilirubin 0.4 (0.2-1.0) mg/dL AST 27 (15-37) IU/L ALT 37 (14-63) IU/L Alkaline Phosphatase 56 (46-116) U/L Total Protein 7.6 (6.4-8.2) g/dL Albumin 3.8 (3.4-5.0) g/dL Globulin 3.8 H (2.0-3.5) g/dL Albumin/Globulin Ratio 1.0 L (1.3-2.8) Meds: Medications Discontinued Medications Generic Name Dose Route Start Last Admin Trade Name Freq PRN Reason Stop Dose Admin Sodium Chloride 1,000 mls @ 999 mls/hr 08/26/17 07:14 08/26/17 07:20 Normal Saline IV 08/26/17 08:14 999 mls/hr STAT ONE Administration Ondansetron HCl 8 mg 08/26/17 08:17 Zofran IVPUSH 08/26/17 08:18 ONETIME ONE Departure - Departure Time of Disposition: 08:19 Disposition: Home, Self-Care 01 Condition: Good Clinical Impression: Dehydration, mild, Headache - Discharge Information Referrals: Solange Whiteside [employer] [Primary Care Provider] - Forms: ED Department Discharge Additional Instructions: The following information is given to patients seen in the emergency department who are being discharged to home. This information is to outline your options for follow-up care. We provide all patients seen in our emergency department with a follow-up referral. The need for follow-up, as well as the timing and circumstances, are variable depending upon the specifics of your emergency department visit. If you don't have a primary care physician on staff, we will provide you with a referral. We always advise you to contact your personal physician following an emergency department visit to inform them of the circumstance of the visit and for follow-up with them and/or the need for any referrals to a consulting specialist. The emergency department will also refer you to a specialist when appropriate. This referral assures that you have the opportunity for follow-up care with a specialist. All of these measure are taken in an effort to provide you with optimal care, which includes your follow-up. Under all circumstances we always encourage you to contact your private physician who remains a resource for coordinating your care. When calling for follow-up care, please make the office aware that this follow-up is from your recent emergency room visit. If for any reason you are refused follow-up, please contact the [facility] emergency department at and asked to speak to the emergency department charge nurse. - My Orders Last 24 Hours: My Active Orders 08/26/17 07:14 UA W/MICROSCOPIC [URIN] Stat - Assessment/Plan Last 24 Hours: My Active Orders 08/26/17 07:14 UA W/MICROSCOPIC [URIN] Stat
[2017-08-26 07:56] LABS: CHLORIDE,CL 105 mmol/L (98-107); SODIUM,NA 140 mmol/L (136-148)
[2017-08-26] MEDS ORDERED: Ondansetron 4 MG/2 ML SDV IVPUSH ONE (08:17)
[2017-08-26 10:12] VITALS: BP 126/90
== END 2017-08-26 10:12 | disposition home or self-care (01) ==
LOC: MW.ED 06:40
DX: E86.0 Dehydration (principal); Z88.6 Allergy status to analgesic agent
CPT/HCPCS: 36415; 80053; 81001; 85025; 96361; 96374; 99284; J2405; J7040; 99283

== ENCOUNTER 2017-09-12 11:36 | Emergency (ER) | payer BC ==
[2017-09-12] MEDS ORDERED: Ketorolac 60 MG/2 ML SDV IM ONE (12:04)
--- NOTE | 2017-09-12 12:56 | CR ---
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 There is no fracture or acute osseous abnormality or dislocation noted. Bone mineralizat ion and joint spaces are otherwise preserved.
--- NOTE | 2017-09-12 13:00 | EDM.PDOC ---
ED HPI GENERAL MEDICAL PROBLEM - General Chief Complaint: Upper Extremity Injury/Pain Stated Complaint: LEFT SHOULDER PAIN Time Seen by Provider: 09/12/17 11:46 Source of Information: Reports: Patient History Limitations: Reports: No Limitations - History of Present Illness INITIAL COMMENTS - FREE TEXT/NARRATIVE: History of present illness: []Patient has a history of shoulder dislocations on the left and today he was at work was lifting something and felt his shoulder pop. He is complaining of severe pain and unable to move his left arm. Review of systems: As per history of present illness and below otherwise all systems reviewed and negative. Past medical history: As per history of present illness and as reviewed below otherwise noncontributory. Surgical history: As per history of present illness and as reviewed below otherwise noncontributory. Social history: No reported history of drug or alcohol abuse. Family history: As per history of present illness and as reviewed below otherwise noncontributory. Physical exam: General: Well developed, well nourished in NAD HEENT: Atraumatic, normocephalic, pupils reactive, negative for conjunctival pallor or scleral icterus, mucous membranes moist, throat clear, neck supple, nontender, trachea midline. Lungs: Clear to auscultation, breath sounds equal bilaterally, chest nontender. Heart: S1S2, regular, negative for clicks, rubs, or JVD. Abdomen: Soft, nondistended, nontender. Negative for masses or hepatosplenomegaly. Negative for costovertebral tenderness. Pelvis: Stable nontender. Genitourinary: Deferred. Rectal: Deferred. Extremities: Obvious deformity with flattening of the left shoulder, negative for cords or calf pain. Neurovascular unremarkable. Neuro: Awake, alert, oriented. Cranial nerves II through XII unremarkable. Cerebellum unremarkable. Motor and sensory unremarkable throughout. Exam nonfocal. Diagnostics: []Reduction x-ray shows normal shoulder [place] fractures Therapeutics: []Fields technique was used at the bedside to reduce shoulder dislocation complication. Patient was put in a shoulder immobilizer Impression: []Left shoulder dislocation Plan: []Ibuprofen, ice, wear shoulder immobilizer for week follow-up with primary care or [facility] as needed. Definitive disposition and diagnosis as appropriate pending reevaluation and review of above. left shoulder Pain Score (Numeric/FACES): 10 - Related Data Allergies Allergy/AdvReac Type Severity Reaction Status Date / Time NSAIDS (Non-Steroidal Allergy Stomach Verified 09/12/17 11:51 Anti-Inflamma Upset Home Meds: Home Meds Omeprazole 40 mg PO DAILY 09/12/17 [History] Past Medical History - Past Health History Medical/Surgical History: Denies Medical/Surgical History HEENT History: Reports: Other (See Below) Other HEENT History: hx of dry eyes Cardiovascular History: Reports: None Respiratory History: Reports: None Gastrointestinal History: Reports: Gastritis, GERD Genitourinary History: Reports: None Musculoskeletal History: Reports: Fracture Other Musculoskeletal History: hx of fx ankle Neurological History: Reports: Headaches, Chronic Psychiatric History: Reports: Anxiety Endocrine/Metabolic History: Reports: None Hematologic History: Reports: None Immunologic History: Reports: None Oncologic (Cancer) History: Reports: None Dermatologic History: Reports: None - Infectious Disease History Infectious Disease History: Reports: None - Past Surgical History Head Surgeries/Procedures: Reports: None HEENT Surgical History: Reports: None Cardiovascular Surgical History: Reports: None GI Surgical History: Reports: None Male Surgical History: Reports: None Social & Family History - Family History Family Medical History: Noncontributory HEENT: Reports: None Cardiac: Reports: None - Tobacco Use Smoking Status *Q: Never Smoker Used Tobacco, but Quit: Yes Month/Year Tobacco Last Used: 2013 Second Hand Smoke Exposure: No - Caffeine Use Caffeine Use: Reports: None - Alcohol Use Days Per Week of Alcohol Use: 0 Number of Drinks Per Day: 15 Total Drinks Per Week: 0 - Recreational Drug Use Recreational Drug Use: No Drug Use in Last 12 Months: No Review of Systems - Review of Systems Review Of Systems: See Below (The history of present illness) ED EXAM, GENERAL - Physical Exam Exam: See Below (See history of present illness) Course - Vital Signs Last Recorded V/S: Last Vital Signs Temp 97.9 F 09/12/17 11:55 Pulse 70 09/12/17 13:10 Resp 18 09/12/17 13:10 BP 132/84 09/12/17 13:10 Pulse Ox 100 09/12/17 13:10 - Orders/Labs/Meds Orders: Active Orders 24 hr Category Date Time Status Splinting [RC] ASDIRECTED Care 09/12/17 12:02 Active Meds: Medications Discontinued Medications Generic Name Dose Route Start Last Admin Trade Name Freq PRN Reason Stop Dose Admin Ketorolac Tromethamine 60 mg 09/12/17 12:04 09/12/17 12:34 Toradol IM 09/12/17 12:05 60 mg ONETIME ONE Administration Departure - Departure Time of Disposition: 12:59 Disposition: Home, Self-Care 01 Condition: Good Clinical Impression: Recurrent dislocation, left shoulder - Discharge Information Instructions: Shoulder Dislocation Referrals: PCP,None [Primary Care Provider] - Forms: ED Department Discharge Additional Instructions: The following information is given to patients seen in the emergency department who are being discharged to home. This information is to outline your options for follow-up care. We provide all patients seen in our emergency department with a follow-up referral. The need for follow-up, as well as the timing and circumstances, are variable depending upon the specifics of your emergency department visit. If you don't have a primary care physician on staff, we will provide you with a referral. We always advise you to contact your personal physician following an emergency department visit to inform them of the circumstance of the visit and for follow-up with them and/or the need for any referrals to a consulting specialist. The emergency department will also refer you to a specialist when appropriate. This referral assures that you have the opportunity for follow-up care with a specialist. All of these measure are taken in an effort to provide you with optimal care, which includes your follow-up. Under all circumstances we always encourage you to contact your private physician who remains a resource for coordinating your care. When calling for follow-up care, please make the office aware that this follow-up is from your recent emergency room visit. If for any reason you are refused follow-up, please contact the [facility] Emergency Department at and asked to speak to the emergency department charge nurse. Follow-up with primary care [facility] [address] [place] [phone] - My Orders Last 24 Hours: My Active Orders 09/12/17 12:02 Splinting [RC] ASDIRECTED - Assessment/Plan Last 24 Hours: My Active Orders 09/12/17 12:02 Splinting [RC] ASDIRECTED
[2017-09-12 15:42] VITALS: BP 132/84
== END 2017-09-12 13:10 | disposition home or self-care (01) ==
LOC: MW.ED 11:36
DX: M24.412 Recurrent dislocation, left shoulder (principal); K21.9 Gastro-esophageal reflux disease without esophagitis; Y99.0 Civilian activity done for income or pay; Z79.899 Other long term (current) drug therapy; X50.0XXA Overexertion from strenuous movement or load, initial encounter; Z88.8 Allergy status to other drugs, medicaments and biological substances
CPT/HCPCS: 23650; 73030; 96372; 99283; J1885

== ENCOUNTER 2017-12-14 12:53 | Emergency (ER) | payer SELFPAY ==
[2017-12-14] MEDS ORDERED: Pantoprazole 40 MG Vial IVPUSH ONE (13:10)
[2017-12-14] MEDS ORDERED: Alum Hydrox/Mag Hydrox/Simeth 15 ML, Metoclopramide 5 MG, Lidocaine 2% 5 ML PO ONE ×3 (13:10)
--- NOTE | 2017-12-14 13:15 | EDM.PDOC ---
ED HPI GENERAL MEDICAL PROBLEM - General Chief Complaint: Chest Pain Stated Complaint: CHEST PAIN Time Seen by Provider: 12/14/17 13:14 Source of Information: Reports: Patient - History of Present Illness INITIAL COMMENTS - FREE TEXT/NARRATIVE: HISTORY AND PHYSICAL: History of present illness: [ Patient presents with epigastric discomfort 2 out of 10 nonradiating pain began yesterday after eating edition arm neck or jaw no shortness of breath or diaphoresis History of GERD patient has been noncompliant with omeprazole again after eating food last night improved with GI cocktail and proton X today he also mentions that he had small amount of bright red blood per rectum with bowel movement this morning previous colonoscopy on file from June 2017 no findings of significance outside of internal hemorrhoids, lack negative here in the emergency room ] Colonoscopy performed June 2017 no findings outside of internal hemorrhoids, EGD also performed with no findings No fever nausea vomiting chills sweats no chest pain shortness breath headache dizziness palpitation no bowel or urine symptoms Review of systems: As per history of present illness and below otherwise all systems reviewed and negative. Past medical history: As per history of present illness and as reviewed below otherwise noncontributory. Surgical history: As per history of present illness and as reviewed below otherwise noncontributory. Social history: No reported history of drug or alcohol abuse. Family history: As per history of present illness and as reviewed below otherwise noncontributory. Physical exam: HEENT: Atraumatic, normocephalic, pupils reactive, negative for conjunctival pallor or scleral icterus, mucous membranes moist, throat clear, neck supple, nontender, trachea midline. Lungs: Clear to auscultation, breath sounds equal bilaterally, chest nontender. Heart: S1S2, regular, negative for clicks, rubs, or JVD. Abdomen: Soft, nondistended, nontender. Negative for masses or hepatosplenomegaly. Negative for costovertebral tenderness. Pelvis: Stable nontender. Genitourinary: Deferred. Rectal: External exam no mass scarred lesion guaiac negative internal exam no mass scar or lesion appreciated. Extremities: Atraumatic, negative for cords or calf pain. Neurovascular unremarkable. Neuro: Awake, alert, oriented. Cranial nerves II through XII unremarkable. Cerebellum unremarkable. Motor and sensory unremarkable throughout. Exam nonfocal. Diagnostics: [CBC CMP UA troponin lipase EKG Chest 1 view ]Guaiac-negative Therapeutics: [ GI cocktail Proton X ] Omeprazole 40 mg by mouth daily Impression: [ GERD ] History of internal hemorrhoids Definitive disposition and diagnosis as appropriate pending reevaluation and review of above. Bilateral Chest Pain Score (Numeric/FACES): 7 - Related Data Allergies Allergy/AdvReac Type Severity Reaction Status Date / Time NSAIDS (Non-Steroidal Allergy Stomach Verified 12/14/17 13:08 Anti-Inflamma Upset Home Meds: Home Meds Omeprazole 40 mg PO DAILY 09/12/17 [History] Celecoxib [CeleBREX] 100 mg PO DAILY 12/14/17 [History] Sucralfate 1 gm PO QID 12/14/17 [History] Past Medical History - Past Health History Medical/Surgical History: Denies Medical/Surgical History HEENT History: Reports: Other (See Below) Other HEENT History: hx of dry eyes Cardiovascular History: Reports: None Respiratory History: Reports: None Gastrointestinal History: Reports: Gastritis, GERD Genitourinary History: Reports: None Musculoskeletal History: Reports: Fracture Other Musculoskeletal History: hx of fx ankle Neurological History: Reports: Headaches, Chronic Psychiatric History: Reports: Anxiety Endocrine/Metabolic History: Reports: None Hematologic History: Reports: None Immunologic History: Reports: None Oncologic (Cancer) History: Reports: None Dermatologic History: Reports: None - Infectious Disease History Infectious Disease History: Reports: None - Past Surgical History Head Surgeries/Procedures: Reports: None HEENT Surgical History: Reports: None Cardiovascular Surgical History: Reports: None GI Surgical History: Reports: None Male Surgical History: Reports: None Social & Family History - Family History Family Medical History: Noncontributory HEENT: Reports: None Cardiac: Reports: None - Caffeine Use Caffeine Use: Reports: None ED ROS GENERAL - Review of Systems Review Of Systems: See Below ED EXAM, GENERAL - Physical Exam Exam: See Below Course - Vital Signs Last Recorded V/S: Last Vital Signs Temp 98.4 F 12/14/17 13:10 Pulse 89 12/14/17 13:10 Resp 16 12/14/17 13:10 BP 139/88 12/14/17 13:10 Pulse Ox 97 12/14/17 13:10 - Orders/Labs/Meds Orders: Active Orders 24 hr Category Date Time Status EKG 12 Lead [EKG Documentation Completion] [RC] STAT Care 12/14/17 13:07 Active EKG Documentation Completion [RC] STAT Care 12/14/17 13:06 Inactive Chest 1V Frontal [CR] Stat Exams 12/14/17 13:06 Taken Guaiac [OCCULT BLOOD DIAGNOSTIC] [OP] Stat Lab 12/14/17 13:41 Ordered Labs: Laboratory Tests 12/14/17 12/14/17 12/14/17 Range/Units 13:00 13:00 13:00 WBC 7.24 (4.0-11.0) K/uL RBC 5.26 (4.50-5.90) M/uL Hgb 15.7 (13.0-17.0) g/dL Hct 44.6 (38.0-50.0) % MCV 84.8 (80.0-98.0) fL MCH 29.8 (27.0-32.0) pg MCHC 35.2 (31.0-37.0) g/dL RDW Std Deviation 39.7 (28.0-62.0) fl RDW Coeff of Nancy 13 (11.0-15.0) % Plt Count 199 (150-400) K/uL MPV 10.60 (7.40-12.00) fL Neut % (Auto) 65.4 (48.0-80.0) % Lymph % (Auto) 26.1 (16.0-40.0) % [place] % (Auto) 7.2 (0.0-15.0) % Eos % (Auto) 1.2 (0.0-7.0) % Baso % (Auto) 0.1 (0.0-1.5) % Neut # (Auto) 4.7 (1.4-5.7) K/uL Lymph # (Auto) 1.9 (0.6-2.4) K/uL [place] # (Auto) 0.5 (0.0-0.8) K/uL Eos # (Auto) 0.1 (0.0-0.7) K/uL Baso # (Auto) 0.0 (0.0-0.1) K/uL Nucleated RBC % 0.0 /100WBC Nucleated RBCs # 0 K/uL INR 1.05 Sodium 139 (136-148) mmol/L Potassium 3.6 (3.5-5.1) mmol/L Chloride 105 (98-107) mmol/L Carbon Dioxide 27.7 (21.0-32.0) mmol/L BUN 9 (7.0-18.0) mg/dL Creatinine 1.3 (0.8-1.3) mg/dL Est Cr Clr Drug Dosing 86.22 mL/min Estimated GFR (MDRD) > 60.0 ml/min Glucose 102 (74-106) mg/dL Calcium 8.9 (8.5-10.1) mg/dL Total Bilirubin 0.4 (0.2-1.0) mg/dL AST 25 (15-37) IU/L ALT 37 (14-63) IU/L Alkaline Phosphatase 57 (46-116) U/L Troponin I < 0.050 (0.000-0.056) ng/mL Total Protein 7.8 (6.4-8.2) g/dL Albumin 3.8 (3.4-5.0) g/dL Globulin 4.0 H (2.0-3.5) g/dL Albumin/Globulin Ratio 1.0 L (1.3-2.8) Lipase 229 (73-393) U/L Meds: Medications Discontinued Medications Generic Name Dose Route Start Last Admin Trade Name Freq PRN Reason Stop Dose Admin Al Hydroxide/Mg Hydroxide 15 0 ml 12/14/17 13:10 12/14/17 13:29 ml/ Metoclopramide HCl 5 mg/ PO 12/14/17 13:11 1 each Lidocaine HCl 5 ml ONETIME ONE Administration Pantoprazole Sodium 80 mg 12/14/17 13:10 12/14/17 13:29 Protonix Iv IVPUSH 12/14/17 13:11 80 mg .BOLUS ONE Administration Pantoprazole Sodium Confirm 12/14/17 13:23 12/14/17 13:28 Protonix Iv Administered 12/14/17 13:24 Not Given Dose 80 mg .ROUTE .STK-MED ONE Departure - Departure Time of Disposition: 14:17 Disposition: Home, Self-Care 01 Condition: Good Clinical Impression: GERD (gastroesophageal reflux disease) - Discharge Information Referrals: PCP,None [Primary Care Provider] - Forms: ED Department Discharge Additional Instructions: Omeprazole 40 mg daily as previously recommended strongly encouraged to continue with this [place] diet Return if symptoms persist or worsen or new concerning symptoms develop Follow-up with primary care in 2 weeks [facility] [address] [place] [id number] The following information is given to patients seen in the emergency department who are being discharged to home. This information is to outline your options for follow-up care. We provide all patients seen in our emergency department with a follow-up referral. The need for follow-up, as well as the timing and circumstances, are variable depending upon the specifics of your emergency department visit. If you don't have a primary care physician on staff, we will provide you with a referral. We always advise you to contact your personal physician following an emergency department visit to inform them of the circumstance of the visit and for follow-up with them and/or the need for any referrals to a consulting specialist. The emergency department will also refer you to a specialist when appropriate. This referral assures that you have the opportunity for follow-up care with a specialist. All of these measure are taken in an effort to provide you with optimal care, which includes your follow-up. Under all circumstances we always encourage you to contact your private physician who remains a resource for coordinating your care. When calling for follow-up care, please make the office aware that this follow-up is from your recent emergency room visit. If for any reason you are refused follow-up, please contact the [facility] emergency department at and asked to speak to the emergency department charge nurse. - My Orders Last 24 Hours: My Active Orders 12/14/17 13:06 EKG Documentation Completion [RC] STAT Chest 1V Frontal [CR] Stat 12/14/17 13:07 EKG 12 Lead [EKG Documentation Completion] [RC] STAT 12/14/17 13:41 Guaiac [OCCULT BLOOD DIAGNOSTIC] [OP] Stat - Assessment/Plan Last 24 Hours: My Active Orders 12/14/17 13:06 EKG Documentation Completion [RC] STAT Chest 1V Frontal [CR] Stat 12/14/17 13:07 EKG 12 Lead [EKG Documentation Completion] [RC] STAT 12/14/17 13:41 Guaiac [OCCULT BLOOD DIAGNOSTIC] [OP] Stat
[2017-12-14] MEDS ORDERED: Pantoprazole 40 MG Vial ONE (13:23)
[2017-12-14 13:44] LABS: CHLORIDE,CL 105 mmol/L (98-107); SODIUM,NA 139 mmol/L (136-148)
[2017-12-14 14:29] VITALS: BP 122/80
--- NOTE | 2017-12-14 15:17 | CR ---
EXAM DATE: 12/14/17 PATIENT'S AGE: 36 Patient: SAULO GRACE Facility: [place], [place] Site . Site : [id number] Study: XRay Chest [id number] 2:05:02 PM Ordering Physician: Cedric Molina Final Report: HISTORY: Pain. FINDINGS: AP portable chest radiograph is compared with 04 August 2017. Cardiac silhouette is acceptable size. Pulmonary vasculature is free of cephalization. No consolidation or pleural effusion is seen. No pneumothorax. No displaced rib fracture. IMPRESSION: No acute cardiopulmonary disease. Dictated by Yanci Hill MD @ 12/14/2017 2:08:45 PM Dictated by: Yanci Hill MD @ 12/14/2017 14:08:53 (Electronic Signature) Report Signed by Proxy. [facility]
== END 2017-12-14 14:28 | disposition home or self-care (01) ==
LOC: MW.ED 12:53
DX: K21.9 Gastro-esophageal reflux disease without esophagitis (principal); Z88.8 Allergy status to other drugs, medicaments and biological substances; Z79.899 Other long term (current) drug therapy
CPT/HCPCS: 36415; 71045; 80053; 82272; 83690; 84484; 85025; 85610; 93005; 96374; 99285; A9270; C9113

== ENCOUNTER 2019-03-07 10:57 | Emergency (ER) | payer SELFPAY ==
[2019-03-07] MEDS ORDERED: Pantoprazole 40 MG Vial IVPUSH ONE (11:09)
[2019-03-07] MEDS ORDERED: Ketorolac 30 MG/ML SDV IVPUSH ONE (11:09)
[2019-03-07] MEDS ORDERED: Sodium Chloride 0.9% 1,000 ML IV ONE (11:09)
[2019-03-07] MEDS ORDERED: Sodium Chloride 0.9% 10 ML Syringe FLUSH STA (11:12)
--- NOTE | 2019-03-07 11:12 | EDM.PDOC ---
ED HPI GENERAL MEDICAL PROBLEM - General Chief Complaint: Chest Pain Stated Complaint: CHEST PAIN Time Seen by Provider: 03/07/19 11:02 Source of Information: Reports: Patient History Limitations: Reports: No Limitations - History of Present Illness INITIAL COMMENTS - FREE TEXT/NARRATIVE: HISTORY AND PHYSICAL: History of present illness: Patient is a 38-year-old male who presents to the emergency room today with complaints of left anterior chest pain. He states this is been intermittent over the past 3 days, states it is aggravated with deep breathing but is not reproducible with palpation. Patient attempted to get into his primary care provider but as he was having current symptoms they wanted him evaluated in the emergency room. Patient states he does have a history of GERD. Had a cardiac stress test June 2018 which was "normal". Patient denies any fever, chills, headache, change in vision, syncope or near syncope. Denies any diaphoresis, back pain, shortness of breath or cough. Denies any abdominal pain, nausea, vomiting, diarrhea, constipation or dysuria. Has not noted any blood in urine or stool. Patient has been eating and drinking appropriately. Review of systems: As per history of present illness and below otherwise all systems reviewed and negative. Past medical history: As per history of present illness and as reviewed below otherwise noncontributory. Surgical history: As per history of present illness and as reviewed below otherwise noncontributory. Social history: See social history for further information Family history: As per history of present illness and as reviewed below otherwise noncontributory. Physical exam: General: Well-developed and well-nourished 38 year old -[place] male. Alert and oriented. Nontoxic appearing and in no acute distress. Vital signs are stable and have been reviewed by me. HEENT: Atraumatic, normocephalic, pupils equal and reactive bilaterally, negative for conjunctival pallor or scleral icterus, mucous membranes moist, trachea midline. No drooling or trismus noted. No meningeal signs. No hot potato voice noted. Lungs: Clear to auscultation, breath sounds equal bilaterally, chest nontender/ non-reproducible. Heart: S1S2, regular rate and rhythm without overt murmur Abdomen: Soft, nondistended, nontender. Negative for masses. Negative for costovertebral tenderness. Pelvis: Stable nontender. Skin: Intact, warm, dry. No lesions or rashes noted. Extremities: Atraumatic, moves all extremities per self without difficulty or deficits, negative for cords or calf pain. Neurovascular unremarkable. Neuro: Awake, alert, oriented. Cranial nerves II through XII unremarkable. Cerebellum unremarkable. Motor and sensory unremarkable throughout. Exam nonfocal. Notes: 07/04/18 he had a nuclear myocardial perfusion study with exercise stress test completed. There was no evidence of myocardial ischemia. Normal ventricular chamber size and function. This stress test was ordered as the patient had been experiencing anterior chest pain for several months. His primary care provider was following him for this chest pain and had noted that he felt some improvement after stopping his NSAIDs due to gastritis/GERD. Chest x-ray shows no acute findings. EKG shows a sinus rhythm with rate of 74, no acute findings. All diagnostics were shared with the patient. Patient states that his pain is gone but has the sensation of burning to his epigastric area. We'll give a GI cocktail. He states he would like to be discharged home to follow-up with his primary care provider. Supportive care measures were reviewed and discussed. Voices understanding and is agreeable to plan of care. Denies any further questions or concerns at this time. Diagnostics: CBC, CMP, troponin, EKG, one view chest Therapeutics: IV fluid, Protonix, Toradol, GI cocktail Prescription: None Impression: Chest pain, nonspecific Plan: 1. Please continue taking your Carafate that you have prescribed to you as directed 2. Follow-up with your primary care provider for further evaluation and management. You may need to see a GI the shoulder is or the general surgeon if your epigastric/chest pain continues as you may need an endoscopy. 3. Return to the ED as needed and as discussed. Definitive disposition and diagnosis as appropriate pending reevaluation and review of above. Left Chest Pain Score (Numeric/FACES): 5 - Related Data Allergies Allergy/AdvReac Type Severity Reaction Status Date / Time NSAIDS (Non-Steroidal Allergy Stomach Verified 03/07/19 11:06 Anti-Inflamma Upset Home Meds: Home Meds Omeprazole 40 mg PO DAILY 09/12/17 [History] Sucralfate 1 gm PO QID 12/14/17 [History] Past Medical History - Past Health History Medical/Surgical History: Denies Medical/Surgical History HEENT History: Reports: Other (See Below) Other HEENT History: hx of dry eyes Cardiovascular History: Reports: None Respiratory History: Reports: None Gastrointestinal History: Reports: Gastritis, GERD Genitourinary History: Reports: None Musculoskeletal History: Reports: Fracture Other Musculoskeletal History: hx of fx ankle Neurological History: Reports: Headaches, Chronic Psychiatric History: Reports: Anxiety Endocrine/Metabolic History: Reports: None Hematologic History: Reports: None Immunologic History: Reports: None Oncologic (Cancer) History: Reports: None Dermatologic History: Reports: None - Infectious Disease History Infectious Disease History: Reports: None - Past Surgical History Head Surgeries/Procedures: Reports: None HEENT Surgical History: Reports: None Cardiovascular Surgical History: Reports: None GI Surgical History: Reports: None Male Surgical History: Reports: None Social & Family History - Family History Family Medical History: Noncontributory HEENT: Reports: None Cardiac: Reports: None - Caffeine Use Caffeine Use: Reports: None ED ROS GENERAL - Review of Systems Review Of Systems: ROS reveals no pertinent complaints other than HPI. ED EXAM, GENERAL - Physical Exam Exam: See Below (See dictation) Course - Vital Signs Last Recorded V/S: Last Vital Signs Temp 96.1 F 03/07/19 11:06 Pulse 63 03/07/19 12:10 Resp 15 03/07/19 12:10 BP 108/79 03/07/19 12:10 Pulse Ox 97 03/07/19 12:10 - Orders/Labs/Meds Orders: Active Orders 24 hr Category Date Time Status EKG Documentation Completion [RC] STAT Care 03/07/19 11:02 Active Labs: Laboratory Tests 03/07/19 03/07/19 Range/Units 11:10 11:10 WBC 6.40 (4.0-11.0) K/uL RBC 5.25 (4.50-5.90) M/uL Hgb 15.5 (13.0-17.0) g/dL Hct 45.2 (38.0-50.0) % MCV 86.1 (80.0-98.0) fL MCH 29.5 (27.0-32.0) pg MCHC 34.3 (31.0-37.0) g/dL RDW Std Deviation 42.0 (28.0-62.0) fl RDW Coeff of Nancy 13 (11.0-15.0) % Plt Count 143 L (150-400) K/uL MPV 12.00 (7.40-12.00) fL Neut % (Auto) 44.5 L (48.0-80.0) % Lymph % (Auto) 41.1 H (16.0-40.0) % [place] % (Auto) 7.2 (0.0-15.0) % Eos % (Auto) 7.0 (0.0-7.0) % Baso % (Auto) 0.2 (0.0-1.5) % Neut # (Auto) 2.9 (1.4-5.7) K/uL Lymph # (Auto) 2.6 H (0.6-2.4) K/uL [place] # (Auto) 0.5 (0.0-0.8) K/uL Eos # (Auto) 0.5 (0.0-0.7) K/uL Baso # (Auto) 0.0 (0.0-0.1) K/uL Nucleated RBC % 0.0 /100WBC Nucleated RBCs # 0 K/uL Sodium 141 (136-148) mmol/L Potassium 3.6 (3.5-5.1) mmol/L Chloride 104 (98-107) mmol/L Carbon Dioxide 27.5 (21.0-32.0) mmol/L BUN 6 L (7.0-18.0) mg/dL Creatinine 1.4 H (0.8-1.3) mg/dL Est Cr Clr Drug Dosing 78.52 mL/min Estimated GFR (MDRD) > 60.0 ml/min Glucose 97 (74-106) mg/dL Calcium 9.0 (8.5-10.1) mg/dL Total Bilirubin 0.6 (0.2-1.0) mg/dL AST 31 (15-37) IU/L ALT 33 (14-63) IU/L Alkaline Phosphatase 66 (46-116) U/L Troponin I < 0.050 (0.000-0.056) ng/mL Total Protein 8.4 H (6.4-8.2) g/dL Albumin 3.8 (3.4-5.0) g/dL Globulin 4.6 H (2.6-4.0) g/dL Albumin/Globulin Ratio 0.8 L (0.9-1.6) Meds: Medications Discontinued Medications Generic Name Dose Route Start Last Admin Trade Name Ronda PRN Reason Stop Dose Admin Al Hydroxide/Mg Hydroxide 15 0 ml 03/07/19 12:15 ml/ Metoclopramide HCl 5 mg/ PO 03/07/19 12:16 Lidocaine HCl 5 ml ONETIME ONE Sodium Chloride 1,000 mls @ 999 mls/hr 03/07/19 11:09 03/07/19 11:23 Normal Saline IV 03/07/19 12:09 999 mls/hr STAT ONE Administration Ketorolac Tromethamine 30 mg 03/07/19 11:09 03/07/19 11:35 Toradol IVPUSH 03/07/19 11:10 30 mg ONETIME ONE Administration Pantoprazole Sodium 80 mg 03/07/19 11:09 03/07/19 11:23 Protonix Iv IVPUSH 03/07/19 11:10 80 mg .BOLUS ONE Administration Sodium Chloride 20 ml 03/07/19 11:12 03/07/19 11:39 Saline Flush FLUSH 03/07/19 11:13 20 ml NOW STA Administration Departure - Departure Time of Disposition: 12:21 Disposition: Home, Self-Care 01 Clinical Impression: Nonspecific chest pain Instructions: Nonspecific Chest Pain, [id number] Referrals: Pardeep Grayson MD [Primary Care Provider] - Forms: ED Department Discharge Additional Instructions: The following information is given to patients seen in the emergency department who are being discharged to home. This information is to outline your options for follow-up care. We provide all patients seen in our emergency department with a follow-up referral. The need for follow-up, as well as the timing and circumstances, are variable depending upon the specifics of your emergency department visit. If you don't have a primary care physician on staff, we will provide you with a referral. We always advise you to contact your personal physician following an emergency department visit to inform them of the circumstance of the visit and for follow-up with them and/or the need for any referrals to a consulting specialist. The emergency department will also refer you to a specialist when appropriate. This referral assures that you have the opportunity for follow-up care with a specialist. All of these measure are taken in an effort to provide you with optimal care, which includes your follow-up. Under all circumstances we always encourage you to contact your private physician who remains a resource for coordinating your care. When calling for follow-up care, please make the office aware that this follow-up is from your recent emergency room visit. If for any reason you are refused follow-up, please contact the [facility] Emergency Department at and asked to speak to the emergency department charge nurse. [facility] [address] [place] [id number] [facility] [address] [place] [phone] 1. Please continue taking your Carafate that you have prescribed to you as directed 2. Follow-up with your primary care provider for further evaluation and management. You may need to see a GI the shoulder is or the general surgeon if your epigastric/chest pain continues as you may need an endoscopy. 3. Return to the ED as needed and as discussed. - My Orders Last 24 Hours: My Active Orders 03/07/19 11:02 EKG Documentation Completion [RC] STAT - Assessment/Plan Last 24 Hours: My Active Orders 03/07/19 11:02 EKG Documentation Completion [RC] STAT
--- NOTE | 2019-03-07 11:53 | CR ---
Chest: Portable view of the chest was obtained. Comparison: Previous chest x-ray of 12/14/17. Heart size is slightly prominent but felt accentuated from portable technique. Lungs are clear with no acute parenchymal change. Bony structures are grossly intact. Impression: Nothing acute is appreciated on portable chest x-ray. Diagnostic code #1 MTDD
[2019-03-07 12:10] LABS: BLOOD UREA NITROGEN,BUN 6 mg/dL (7.0-18.0); CARBON DIOXIDE,CO2 27.5 mmol/L (21.0-32.0); CHLORIDE,CL 104 mmol/L (98-107); GLUCOSE RANDOM 97 mg/dL (74-106); POTASSIUM,K 3.6 mmol/L (3.5-5.1); SODIUM,NA 141 mmol/L (136-148)
[2019-03-07 12:11] VITALS: BP 108/79
[2019-03-07] MEDS ORDERED: Alum Hydrox/Mag Hydrox/Simeth 15 ML, Metoclopramide 5 MG, Lidocaine 2% 5 ML PO ONE ×3 (12:15)
[2019-03-07 12:50] VITALS: PULSE 60
== END 2019-03-07 12:51 | disposition home or self-care (01) ==
LOC: MW.ED 10:57
DX: R07.9 Chest pain, unspecified (principal); K21.9 Gastro-esophageal reflux disease without esophagitis; Z79.899 Other long term (current) drug therapy; Z88.6 Allergy status to analgesic agent
CPT/HCPCS: 36415; 71045; 80053; 84484; 85025; 93005; 96361; 96374; 96375; 99285; A9270; C9113; J1885; J7040; 99283

== ENCOUNTER 2022-06-04 00:57 | Emergency (ER) | payer SELFPAY ==
[2022-06-04] MEDS ORDERED: HYDROmorphone 1 MG/ML Syringe IM ONE (01:18)
[2022-06-04] MEDS ORDERED: Dexamethasone 10 MG/ML SDV IM STA (01:18)
[2022-06-04] MEDS ORDERED: Cyclobenzaprine 10 MG Tab PO ONE (01:18)
[2022-06-04 03:43] VITALS: BP 128/65; PULSE 76
== END 2022-06-04 03:41 | disposition home or self-care (01) ==
LOC: MW.ED 00:57
DX: S39.92XA Unspecified injury of lower back, initial encounter (principal); Z88.6 Allergy status to analgesic agent; Z79.899 Other long term (current) drug therapy; W00.9XXA Unspecified fall due to ice and snow, initial encounter
CPT/HCPCS: 72131; 96372; 99283; A9270; J1100; J1170